=== PATIENT | female | born 1965 | race Caucasian/White ===

== ENCOUNTER 2016-06-20 07:28 | Inpatient (IN) | payer BC ==
[2016-06-12 09:37] LABS: BASOPHILS 0.6 %; BASOPHILS ABSOLUTE 0.04 10/3/uL (0.0-0.16); EOSINOPHILS 0.9 %; EOSINOPHILS ABSOLUTE 0.06 10/3/uL (0.0-0.53); HEMATOCRIT 40.1 % (36.0-48.0); HEMOGLOBIN 13.6 g/dL (12.0-16.0); IMMATURE GRANULOCYTES 0.2 %; IMMATURE GRANULOCYTES ABSOLUTE 0.01 10/3/uL (0.0-0.11); LYMPHOCYTES 31.1 %; LYMPHOCYTES ABSOLUTE 2.07 10/3/uL (0.67-4.30); MEAN CORPUS HGB CONC 33.9 g/dL (32.0-36.0); MEAN CORPUSCULAR HEMOGLOB 30.3 pg (26.0-34.0); MEAN CORPUSCULAR VOLUME 89.3 fL (80-100); MEAN PLATELET VOLUME 8.4 fL (9.2-13.0); MONOCYTES 6.8 %; MONOCYTES ABSOLUTE 0.45 10/3/uL (0.21-1.20); NEUTROPHILS 60.4 %; NEUTROPHILS ABSOLUTE 4.03 10/3/uL (2.02-8.40); PLATELET COUNT 270 10/3/uL (150-400); RBC DISTRIBUTION WIDTH 13.5 % (12.0-16.0); RED CELL COUNT 4.49 10/6/uL (4.0-5.6); WHITE BLOOD CELLS 6.7 10/3/uL (4.5-10.5)
[2016-06-12 09:39] LABS: MANUAL DIFF NO %
[2016-06-12 09:52] LABS: A/G RATIO 0.8 (0.7-1.9); ALBUMIN 3.5 G/DL (3.5-5.0); ALKALINE PHOSPHATASE 73 U/L (45-117); BUN (BLOOD UREA NITROGEN) 15 MG/DL (6-23); CALCIUM, SERUM 9.1 MG/DL (8.5-10.4); CHLORIDE, SERUM 106 MMOL/L (96-112); CO2 (CARBON DIOXIDE) 28 MMOL/L (24-34); CREATININE 0.81 MG/DL (0.55-1.02); GFR AFRICAN AMERICAN 97 ML/MIN (>=60); GFR NON AFRICAN AMERICAN 84 ML/MIN (>=60); GLOBULIN 4.3 G/DL (2.5-4.1); GLUCOSE, SERUM 91 MG/DL (60-99); PARTIAL THROMBO TIME 32.9 SEC (22.5-37.2); POTASSIUM, SERUM 4.2 MMOL/L (3.5-5.3); SGOT(AST) 13 U/L (5-40); SGPT(ALT) 19 U/L (5-65); SODIUM, SERUM 141 MMOL/L (135-148); TOTAL BILIRUBIN 0.5 MG/DL (0-1.2); TOTAL PROTEIN 7.8 G/DL (6.0-8.5)
[2016-06-12 09:55] LABS: INTERNATIONAL NORMAL RATI 1.1 UNITS (-); PROTIME (NOT ORD) 13.9 SEC (12.0-14.5)
[2016-06-12 11:30] LABS: ASCORBIC ACID (UR NOT ORDER) NEG (NEG); BILIRUBIN, URINE NEGATIVE (NEG); KETONE, URINE NEGATIVE (NEG); LEUKOCYTE ESTERASE(NOT OR NEG (NEG); WBC (NOT ORDERED) (RFLEX) 1 (0-5)
--- NOTE | ~2016-06-20 | OP ---
Record Of Operation [facility] [address] [place]. [address] NAME: NING WHYTE : 63 STATUS : ADM IN PAT#: [id number] AGE: 50 ADM/REG DATE : 06/20/16 MR#: [id number] REPORT SERV DATE: 06/20/16 DICTATED BY: ALEKSEY HOLLOWAY DATE: 06/20/16 REPORT STATUS : Draft TRANSCRIBED BY: MODL DATE: 06/20/16 DATE OF PROCEDURE: 06/20/2016 PREOPERATIVE DIAGNOSIS: Left hip end-stage arthritis. POSTOPERATIVE DIAGNOSIS: Left hip end-stage arthritis. PROCEDURE PERFORMED: Left total hip arthroplasty. SURGEON: Aleksey Holloway M.D. COMB CAPPER: Christa Leon. ANESTHESIA: General with local infusion. PROCEDURE IN DETAIL: The patient is clearly identified and after obtaining informed consent is brought to the operating room at [facility] where here the patient is induced under general anesthesia and subsequently placed in the left lateral decubitus position. This concluded, the thigh and flank are prepped and draped in the usual manner. A time-out procedure successfully performed and after registering the knee and marking the anatomy through an approximately 4.5 incision, the skin is divided. The fascial planes are divided. The lateral fascia then is divided. Hemostasis is obtained with electrocautery and a Charnley retractor is applied. The piriformis is identified, tagged, divided, and retracted over the sciatic nerve felt deep in the wound. At which point, the mini approach to the hip is formed with dividing the capsule in a mini approach with a cuff of tissues remaining at the femoral side to accomplish repair at the conclusion of the case. Dislocating the hip, end-stage arthritic changes are noted. The tissue surrounding the femoral neck are protected with the Hohmann retractor and the femoral neck cut is made according to preoperative templating. This concluded, the femoral head is removed. The acetabulum is exposed. The labral and fluvial tissues are removed and reaming is performed. Subsequently trialing with the appropriate trial, the permanent acetabular components placed with the Bear Sector. At which point, the acetabular trial component is then placed. The proximal femur is then addressed. The structures posteromedial to the greater trochanter are removed and this concluded the cookie-guilherme canal finder lateralizer and reaming is performed. This concluded, broaching is performed and with excellent fit-fill and stability for the implant trialing is performed finding excellent leg length, stability, no impingement, good kickback, no push-pull, and the lesser trochanter palpably at the appropriate distance from the ischium when compared to preoperative templating. The trials were felt to be appropriate. These are all then removed and the permanent implants are then carefully applied uneventfully. Copious irrigation is then performed with same stability and findings noted after insertion. At which point, the joint then is carefully closed in layers including capsule, piriformis, lateral fascia, deep tissues, and skin. Aquacel dressing is applied and the patient is then allowed to awaken, is placed supine and is returned to the recovery room in stable condition having tolerated the procedure well. ESTIMATED BLOOD LOSS: 400 mL. Record Of Operation [facility] [address] [place]. [address] NAME: NING WHYTE : 63 STATUS : ADM IN [facility]#: [id number] AGE: 50 ADM/REG DATE : 06/20/16 MR#: [id number] REPORT SERV DATE: 06/20/16 DICTATED BY: ALEKSEY HOLLOWAY DATE: 06/20/16 REPORT STATUS : Draft TRANSCRIBED BY: MODL DATE: 06/20/16 FLUIDS: 2000 mL. TOURNIQUET TIME: None. PATHOLOGY: Sent specimen. MICROBIOLOGY: None. COMPLICATIONS: None. However, during the extraction of the femoral head, the Mahin clamp broke removing the femoral head and not finding the fragment of metal within the femoral head. Image intensifier was utilized to review the femoral head and associated tissues that were removed. Finding no metal and these tissues, a rainbow drape C-arm was utilized to see metallic fragment in the superior acetabulum, which then was carefully palpated deep to the acetabulum superiorly in the iliac wing and then carefully removing it. The very tip did not seem to be present. Reimaging revealed no evidence of metallic debris in the patient or the products, and at this point, it was felt that it would be appropriate to continue the case as is described above and subsequently postoperative x-ray does not reveal any metallic foreign body in the soft tissues at all. SPONGE AND NEEDLE COUNTS: Reportedly correct. ANTIBIOTICS: Administered appropriately preoperatively and ordered to be discontinued within 23 hours. IMPLANTS: DePuy hip system, femur Withee, size 5 standard -2/36 metal head. Acetabulum, Bear sector size 52 with a +4 neutral liner, and no screws. TEDDY/JONATHAN Aleksey Holloway M.D. / [id number] CC: David Christianson M.D.
[~2016-06-20 07:28] MED LIST: ADVAIR100 INH; ALLEGRA180 PO; BENICAR HCT1 TAB PO; BENICAR20 PO; DIOVAN HC1 PO; FISH OIL1200 MG PO; GLUCCHONDR PO; SINGULAIR1 PO
[2016-06-21 05:33] LABS: HEMATOCRIT 30.1 % (36.0-48.0); HEMOGLOBIN 10.2 g/dL (12.0-16.0)
[2016-06-21 05:38] LABS: INTERNATIONAL NORMAL RATI 1.2 UNITS (-); PROTIME (NOT ORD) 14.7 SEC (12.0-14.5)
[2016-06-21 05:42] LABS: BUN (BLOOD UREA NITROGEN) 20 MG/DL (6-23); CALCIUM, SERUM 8.5 MG/DL (8.5-10.4); CHLORIDE, SERUM 102 MMOL/L (96-112); CO2 (CARBON DIOXIDE) 29 MMOL/L (24-34); CREATININE 1.08 MG/DL (0.55-1.02); GFR AFRICAN AMERICAN 69 ML/MIN (>=60); GFR NON AFRICAN AMERICAN 59 ML/MIN (>=60); GLUCOSE, SERUM 121 MG/DL (60-99); POTASSIUM, SERUM 3.7 MMOL/L (3.5-5.3); SODIUM, SERUM 137 MMOL/L (135-148)
[2016-06-22 04:56] LABS: HEMATOCRIT 25.1 % (36.0-48.0); HEMOGLOBIN 8.7 g/dL (12.0-16.0)
[2016-06-22 04:58] LABS: INTERNATIONAL NORMAL RATI 1.4 UNITS (-); PROTIME (NOT ORD) 16.7 SEC (12.0-14.5)
[2016-06-22] MEDS ORDERED: OXYCOD PO (15:47)
[2016-06-22] MEDS ORDERED: ZOFRAN4 PO (15:47)
[2016-06-22] MEDS ORDERED: C5 (15:48)
== END 2016-06-22 16:36 | disposition home or self-care (01) | DRG 470 ==
LOC: SDC/OF 07:28 → 3JRC 14:11
PROVIDERS: Orthopaedic Surgery
PROC: 0SRB02A Replacement of Left Hip Joint with Metal on Polyethylene Synthetic Substitute, Uncemented, Open Approach (ICD-10-PCS; principal; 2016-06-20 08:30)
DX: M16.12 Unilateral primary osteoarthritis, left hip (principal); Z68.42 Body mass index [BMI] 45.0-49.9, adult; I10 Essential (primary) hypertension; E66.01 Morbid (severe) obesity due to excess calories; J45.909 Unspecified asthma, uncomplicated; G47.33 Obstructive sleep apnea (adult) (pediatric); Z88.1 Allergy status to other antibiotic agents
CPT/HCPCS: 36415; 71020; 72170; 76000; 80048; 80053; 81001; 84703; 85014; 85018; 85025; 85610; 85730; 86850; 86900; 86901; 87641; 88304; 88311; 93005; 97110-GP; 97116-GP; 97161-GP; 97165-GO; 97535-GO; A9270-GY; C1776; J0690; J1170; J1885; J2250; J2274; J2370; J2405; J2710; J2795; J3010